=== PATIENT | female | born 1995 | race Caucasian/White ===

== ENCOUNTER 2019-03-19 22:00 | Emergency (ER) | payer OTHER ==
[~2019-03-19] VITALS: Ht 154.9 cm; Wt 52.2 kg
[2019-03-19 22:03] VITALS: BP 127/79
--- NOTE | 2019-03-19 22:03 | NUR ---
TO CHAIR E AMBULATORY.
--- NOTE | 2019-03-19 22:05 | NUR ---
PATIENT IS A 23 Y/O FEMALE WHO PRESENTS TO THE ED FOR NEEDLESTICK. 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 NO OBVIOUS BLEEDING, NO TRAUMA/INJURY. PT DENIES CP, SOB, N/V/D. PT AWAKE AND ALERT, RR EVEN/UNLABORED. PT REPOSITIONED FOR COMFORT, BED IN LOWEST POSITION. ER MD DR. SIMON NOTIFIED. WILL CONTINUE TO MONITOR. DENIES [facility]
--- NOTE | 2019-03-19 22:30 | NUR ---
DR. SIMON EVALUATING PATIENT AT BEDSIDE.
[2019-03-19 23:00] VITALS: BP 119/82
--- NOTE | 2019-03-19 23:00 | NUR ---
Patient discharged with v/s stable. Written and verbal after care instructions given and explained. Patient verbalized understanding. Ambulatory with steady gait. All questions addressed prior to discharge. Advised to follow up with PMD.
[2019-03-21 13:38] LABS: HEPATITIS B CORE AB TOTAL Negative (Negative); HEPATITIS B SURFACE ANTIBODY Reactive (.); HEPATITIS B SURFACE ANTIGEN Negative (Negative); HEPATITIS C VIRUS ANTIBODY <0.1 s/co ratio (0.0-0.9)
== END 2019-03-19 23:00 | disposition home or self-care (01) ==
LOC: MED 22:00
DX: S61.231A Puncture wound without foreign body of left index finger without damage to nail, initial encounter (principal); W46.0XXA Contact with hypodermic needle, initial encounter; Y93.89 Activity, other specified; Y92.89 Other specified places as the place of occurrence of the external cause; Y99.8 Other external cause status
CPT/HCPCS: 36415; 86702; 86704; 86706; 86803; 87340; 99283

== ENCOUNTER 2020-10-10 22:31 | Emergency (ER) | payer OTHER | END 2020-10-10 23:04 | disposition home or self-care (01) | LOC: MED 22:31 | DX: Z20.828 Contact with and (suspected) exposure to other viral communicable diseases (principal); Z02.89 Encounter for other administrative examinations | CPT/HCPCS: 99283; U0003 ==

== ENCOUNTER 2021-06-05 21:03 | Emergency (ER) | payer OTHER ==
[~2021-06-05] VITALS: Ht 154.9 cm; Wt 65.8 kg
--- NOTE | 2021-06-05 21:30 | NUR ---
PT TAKEN TO BED 4
--- NOTE | 2021-06-05 21:34 | NUR ---
see complete assessment. pt attached to library monitor. no acute distress noted.
[2021-06-05 21:36] VITALS: BP 137/79
[2021-06-05] MEDS ORDERED: predniSONE 20 MG TAB PO ONE (22:05)
[2021-06-05] MEDS ORDERED: diphenhydrAMINE 50 MG CAP PO ONE (22:05)
--- NOTE | 2021-06-05 22:09 | NUR ---
Dr. Rayo examining patient.
[2021-06-05] MEDS ORDERED: PRED20TA5 PO (22:25)
[2021-06-05] MEDS ORDERED: DIPH25TA53 PO (22:25)
[2021-06-05 22:48] VITALS: BP 137/79
--- NOTE | 2021-06-05 22:48 | NUR ---
Patient discharged with v/s stable. Written and verbal after care instructions given and explained. Patient alert, oriented and verbalized understanding of instructions. Ambulatory with steady gait. All questions addressed prior to discharge. ID band removed. Patient advised to follow up with PMD. Rx of PREDNISONE, BENADRYL given. Patient educated on indication of medication including possible reaction and side effects. Opportunity to ask questions provided and answered.
== END 2021-06-05 22:48 | disposition home or self-care (01) ==
LOC: MED 21:03
DX: T78.40XA Allergy, unspecified, initial encounter (principal); Z79.899 Other long term (current) drug therapy; X58.XXXA Exposure to other specified factors, initial encounter
CPT/HCPCS: 99283; J7512; Q0163